=== PATIENT | male | born 1985 | race Two or more races ===

== ENCOUNTER 2020-08-18 10:29 | Emergency (ER) | payer BC ==
[~2020-08-18] VITALS: Ht 175.3 cm; Wt 161.0 kg
[2020-08-18 10:58] VITALS: BP 143/102
--- NOTE | 2020-08-18 12:20 | NUR ---
swab done and sent to lab
--- NOTE | 2020-08-18 12:20 | NUR ---
Patient discharged to home in stable condition. Written and verbal after care instructions given. Patient verbalizes understanding of instruction. Pt ambulatory with a steady gait
== END 2020-08-18 12:21 | disposition home or self-care (01) ==
LOC: ER 10:41
DX: U07.1 COVID-19 (principal); I10 Essential (primary) hypertension; E11.9 Type 2 diabetes mellitus without complications
CPT/HCPCS: 99283; C9803; U0003

== ENCOUNTER 2020-08-23 21:00 | Inpatient (IN) | payer BC, OTHER ==
[~2020-08-23] VITALS: Ht 177.8 cm; Wt 147.9 kg
--- NOTE | 2020-08-23 21:00 | NUR ---
TO ER BED 17 BIB EMS C/O SOB X3 DAYS. TESTED COVID (+) 08/18. O2 SAT 85% RA, 95% ON 3L/NC. PT ATTEMPTED PRONE POSITION AT HOME BUT INEFFECTIVE. PT AAOX4. PLACE PT ON CARDAIC MONITORING, CONTINUOUS POX. ER AAKASH FERRELL AT BEDSIDE TO EVAL PT WITH ORDERS RECEIVED. WILL CARRY OUT ORDERS.
--- NOTE | 2020-08-23 21:32 | NUR ---
RT AT [facility] FOR ABG.
[2020-08-23 21:43] LABS: ABG BASE EXCESS -0.6 mmol/L; ABG OXYGEN SATURATION 93.9 % (92.0-98.5); ABG PCO2 36.8 mmHg (35.0-45.0); ABG PH 7.421 (7.350-7.450); ABG PO2 68.3 mmHg (75.0-100.0); AaDO2 116.8 mmHg; COHb 0.4 % (0.5-1.5); MetHb 0.5 % (0.0-1.5); O2Hb 93.1 % (94.0-97.0); SITE, ABG Left Radial; VENT MODE, BG NC 3LPM
[2020-08-23 21:49] LABS: BASOPHILS # (AUTO) 0.1 /CMM (0.0-0.2); BASOPHILS % (AUTO) 0.9 % (0.0-2.0); EOSINOPHILS % (AUTO) 0.1 % (0.0-6.0); HEMATOCRIT 46 % (39-51); HEMOGLOBIN 15.1 g/dL (13.5-17.5); LYMPHOCYTES # (AUTO) 1.4 /CMM (0.8-4.8); LYMPHOCYTES % (AUTO) 16.3 % (20.0-44.0); MEAN CORPUSCULAR HGB CONC 33 g/dl (31.0-36.0); MEAN CORPUSCULAR VOLUME 86 fL (80-96); MONOCYTES # (AUTO) 0.4 /CMM (0.1-1.30); MONOCYTES % (AUTO) 5.3 % (2.0-12.0); NEUTROPHILS # (AUTO) 6.6 /CMM (1.8-8.9); NEUTROPHILS % (AUTO) 77.4 % (43.0-81.0); PLATELET COUNT (AUTO) 227 /CMM (150-450); RED BLOOD CELL COUNT(AUTO) 5.37 MIL/uL (4.5-6.0); WHITE BLOOD COUNT (AUTO) 8.5 K/uL (4.3-11.0)
[2020-08-23 22:14] LABS: ALANINE AMINOTRANSFERASE 89 U/L (12-78); ALBUMIN 3.2 g/dL (3.4-5.0); ALKALINE PHOSPHATASE 112 U/L (46-116); ASPARTATE AMINOTRANSFERASE 59 U/L (15-37); BILIRUBIN,DIRECT 0.3 mg/dL (0.0-0.2); BILIRUBIN,TOTAL 0.5 mg/dL (0.2-1.0); CALCIUM, SERUM 8.6 mg/dL (8.5-10.1); CARBON DIOXIDE 24 mmol/L (21-32); CHLORIDE 99 mmol/L (98-107); CREATININE 0.7 mg/dL (0.6-1.3); GLUCOSE 200 mg/dL (74-106); LIPASE 249 U/L (73-393); POTASSIUM 3.5 mmol/L (3.5-5.1); SODIUM SERUM 135 mmol/L (136-145); TOTAL PROTEIN, SERUM 7.8 g/dL (6.4-8.2); UREA NITROGEN, BLOOD 7 mg/dL (7-18)
[2020-08-23] MEDS ORDERED: IV NS 0.9% 250 ML IV ONE ×2 (22:29→23:03)
[2020-08-23] MEDS ORDERED: IOHEXOL-350 100 ML VIAL IV ONE ×2 (22:29→23:03)
[2020-08-23] MEDS ORDERED: CT SWABBABLE VALVE TRANS SET 1 EA INFUS.SET MC ONE ×2 (22:29→23:03)
[2020-08-23] MEDS ORDERED: IV NS 0.9% 500 ML BAG IV ONE (23:30)
[2020-08-23] MEDS ORDERED: DEXAMETHASONE SOD PHOSPHATE 10 MG/ML VIAL IV ONE (23:30)
[2020-08-23] MEDS ORDERED: CEFTRIAXONE 1GM BAG (ER ONLY) 1 GM/50 ML PIGGYBACK IV ONE (23:30)
[2020-08-23] MEDS ORDERED: AZITHROMYCIN 500 MG in IV D5W 250 ML IV ONE (23:30)
[2020-08-23] MEDS ORDERED: AZITHROMYCIN 500 MG VIAL ONE (23:35)
[2020-08-23] MEDS ORDERED: CEFTRIAXONE 1 G VIAL ONE (23:35)
[2020-08-24] MEDS ORDERED: LISI-607 PO (00:47)
[2020-08-24] MEDS ORDERED: SERT100T PO (00:47)
[2020-08-24] MEDS ORDERED: METF-442 PO (00:47)
--- NOTE | 2020-08-24 00:48 | NUR ---
PT RESTING COMFORTABLY. VSS.
--- NOTE | 2020-08-24 00:52 | NUR ---
ERIC ALONZO AT BEDSIDE
[2020-08-24] MEDS ORDERED: MAGNESIUM HYDROXIDE 30 ML UDC PO PRN (01:00)
[2020-08-24] MEDS ORDERED: ACETAMINOPHEN 325 MG TABLET PO PRN (01:00)
[2020-08-24] MEDS ORDERED: ZOLPIDEM TARTRATE 5 MG TABLET PO PRN (01:00)
[2020-08-24] MEDS ORDERED: ALBUTEROL SULFATE INH 18 GM HFA.AER.AD IH PRN (01:00)
[2020-08-24] MEDS ORDERED: ONDANSETRON HCL/PF 4 MG/2 ML VIAL IVP PRN (01:00)
[2020-08-24] MEDS ORDERED: HYDROCODONE/APAP 5/325MG TABLET PO PRN (01:00)
[2020-08-24] MEDS ORDERED: FUROSEMIDE 20 MG/2 ML VIAL IV SCH (01:00)
--- NOTE | 2020-08-24 01:19 | NUR ---
REPORT GIVEN TO FERNANDEZ AQUINO FOR ISREAL.
--- NOTE | 2020-08-24 01:20 | NUR ---
CALLED LAB REGARDING COVID PCR TEST.
--- NOTE | 2020-08-24 01:27 | NUR ---
PCR SENT TO LAB.
--- NOTE | 2020-08-24 01:28 | NUR ---
PT TRANSFERED PER [facility]S PROTOCOL
--- NOTE | 2020-08-24 01:35 | NUR ---
RN NOTE PT ARRIVED TO UNIT A/O X 4, ON 3 LITER NASAL CANNULA. DENIES ANY SOB AND PAIN AT THIS TIME.VS B/P 119/73 P 98, RR 18, TEMP 97.8, O2 SAT 95%. PT ON TELE MONITOR NSR. IV TO RT NAND AND RT AC PATENT, INTACT AND FLUSHING WELL. PT CLEANED MADE COMFORTABLE. BED LOCKED IN THE LOWEST POSITION, SIDE RAILS UP X 2, CALL LIGHT WITH IN REACH. WILL CONT. TO MONITOR PT.
[2020-08-24] MEDS: DEXAMETHASONE SOD PHOSPHATE 10 MG/ML VIAL IV SCH (02:00)
[2020-08-24] MEDS: AZITHROMYCIN 500 MG in IV D5W 250 ML IV SCH (02:00)
--- NOTE | 2020-08-24 02:00 | NUR ---
RN NOTE 2200 MEDICATIONS GIVEN IN ER SRAVANTHI ROA RN, PT ARRIVED TO [facility] AT 0135
[2020-08-24] MEDS: ENOXAPARIN SODIUM 40 MG/0.4 ML DISP.SYRIN SQ SCH ×2 (02:02→20:53)
[2020-08-24 04:00] VITALS: BP 119/73
--- NOTE | 2020-08-24 07:30 | NUR ---
RN OPENING NOTES PATIENT PRESENT IN BED, A/OX4, ON NC @ 3L, TOLERATING WE'LL, NO SOB REPORTED, NO DISTRESS, SPO2 IS 94%, DENIES PAIN OR DISCOMFORT, ABLE TO AMBULATED, PROVIDED WITH EXTRA LONG NC, SKIN IS INTACT, IV LINE PRESENT ON R HAND AND E AC, INTACT AND PATENT, URINAL AT ED SITE, SAFETY MEASURES IN PLACE, CALL LIGHT IN REACH, BED IS LOCKED IN LOWEST POSITION, WILL CONT TO MONITOR
[2020-08-24 08:00] VITALS: BP 110/65
[2020-08-24 12:00] VITALS: BP 120/78
--- NOTE | 2020-08-24 15:20 | NUR ---
Patient complains on SOB, SPO2 is 87%, increased O2 flow to 4L on NC, SPO2 is 92%
[2020-08-24 16:00] VITALS: BP 122/68
[2020-08-24] MEDS ORDERED: MENTHOL/CETYLPYRD (CEPACOL) 1 LOZ LOZENGE PO PRN (19:30)
[2020-08-24 20:00] VITALS: BP 133/80
--- NOTE | 2020-08-24 20:06 | NUR ---
RN NOTES PATIENT IS ALERT AND RESPONSIVE. NO SOB OR ANY RESPIRATORY DISTRESS. ON 4L OXYGEN VIA NASAL CANNULA, O2 SAT 92%. WITH IV #20 RIGHT HAND AND RIGHT AC INTACT AND PATENT. CALL LIGHT WITHIN REACH. WILL CONTINUE TO MONITOR.
[2020-08-25] VITALS: BP 120/76
--- NOTE | 2020-08-25 02:30 | NUR ---
LAB CALLED AT THIS TIME, REPORTED PATIENT IS COVID POSITIVE ON PCR TEST. AWARE. ISOLATION PRECAUTIONS OBSERVED.
[2020-08-25 04:00] VITALS: BP 118/86
--- NOTE | 2020-08-25 06:48 | NUR ---
RN NOTES PATIENT IS ALERT AND RESPONSIVE. NO SOB OR ANY RESPIRATORY DISTRESS. ON 4L OXYGEN VIA NASAL CANNULA, O2 SAT 96%. WITH IV #20 RIGHT HAND AND RIGHT AC INTACT AND PATENT. DENIES ANY PAIN OR DISCOMFORT. SIDE RAILS UP X2. SAFETY MEASURES IMPLEMENTED. CALL LIGHT WITHIN REACH. WILL ENDORSE TO ONCOMING SHIFT.
--- NOTE | 2020-08-25 07:25 | NUR ---
BIG DATA HADOOP DEVELOPER OPENING NOTES PATIENT IS IN BED RESTING, AWAKE AND VERBALLY RESPONSIVE. ALERT AND ORIENTED X4, ABLE TO MAKE NEEDS KNOWN. BREATHING EVEN AND UNLABORED, ON 5L OXYGEN VIA NASAL CANNULA, NO RESPIRATORY DISTRESS NOTED. ON TELE MONITORING, READING OF SR, HR IN THE 70'S-80'S, NO CARDIAC DISTRESS NOTED. IV LINE ON RIGHT HAND #20 AND RAC #20 INTACT AND PATENT. SAFETY MEASURES IN PLACE: BED ON LOWEST POSITION, SIDE RAILS UP X2. CALL LIGHT WITHIN REACH. WILL CONTINUE TO MONITOR.
[2020-08-25 07:34] LABS: BASOPHILS % (AUTO) 0.3 % (0.0-2.0); EOSINOPHILS % (AUTO) 0.2 % (0.0-6.0); HEMATOCRIT 43 % (39-51); HEMOGLOBIN 14.4 g/dL (13.5-17.5); LYMPHOCYTES # (AUTO) 1.8 /CMM (0.8-4.8); LYMPHOCYTES % (AUTO) 32.1 % (20.0-44.0); MEAN CORPUSCULAR HGB CONC 33 g/dl (31.0-36.0); MEAN CORPUSCULAR VOLUME 86 fL (80-96); MONOCYTES # (AUTO) 0.6 /CMM (0.1-1.30); NEUTROPHILS # (AUTO) 3.1 /CMM (1.8-8.9); NEUTROPHILS % (AUTO) 56.4 % (43.0-81.0); PLATELET COUNT (AUTO) 273 /CMM (150-450); RED BLOOD CELL COUNT(AUTO) 5.03 MIL/uL (4.5-6.0); WHITE BLOOD COUNT (AUTO) 5.5 K/uL (4.3-11.0)
[2020-08-25 08:00] VITALS: BP 114/66
[2020-08-25 08:06] LABS: CALCIUM, SERUM 8.4 mg/dL (8.5-10.1); CREATININE 0.6 mg/dL (0.6-1.3); MAGNESIUM 2.3 mg/dL (1.8-2.4); PHOSPHORUS 3.4 mg/dL (2.5-4.9); POTASSIUM 3.6 mmol/L (3.5-5.1)
[2020-08-25] MEDS: DEXAMETHASONE SOD PHOSPHATE 10 MG/ML VIAL IV SCH (08:28)
[2020-08-25] MEDS ORDERED: DEXTROSE 50%-WATER 50 ML DISP.SYRIN IV PRN (09:00)
--- NOTE | 2020-08-25 09:42 | NUR ---
RN NOTES MILES MOORE, CALLED AND INFORMED THAT DR. ALCAZAR W/ ORDERS FOR PATIENT, NOTED AND CARRIED OUT BY TERESA.
[2020-08-25] MEDS: INSULIN GLARGINE, 100 UNIT/ML CARTRIDGE SQ SCH ×2 (10:30→22:02)
[2020-08-25 10:38] LABS: BILIRUBIN,DIRECT 0.3 mg/dL (0.0-0.2); BILIRUBIN,TOTAL 0.5 mg/dL (0.2-1.0); TOTAL PROTEIN, SERUM 7.3 g/dL (6.4-8.2)
[2020-08-25] MEDS: BLOOD SUGAR DIAGNOSTIC 1 EACH STRIP VI SCH ×3 (11:53→21:59)
[2020-08-25] MEDS: INSULIN REGULAR, HUMAN 100 UNIT/ML 3 ML VIAL SQ PRN ×2 (11:55→17:32)
[2020-08-25 12:00] VITALS: BP 128/79
[2020-08-25] MEDS ORDERED: REMDESIVIR (CHARGED) 200 MG, *LOADING DOSE 1 EA in IV NS 0.9% 210 ML IV ONE (12:00)
--- NOTE | 2020-08-25 12:02 | NUR ---
RN NOTES PATIENT MADE AWARE OF NEW ORDER FROM DR. ALCAZAR OF REMDESIVIR IV. PATIENT VERBALLY AGREED TO RECEIVE MEDICATION.
--- NOTE | 2020-08-25 12:29 | NUR ---
RN NOTES STARTED INITIAL DOSE OF REMDESIVIR IV.
[2020-08-25 16:00] VITALS: BP 123/81
--- NOTE | 2020-08-25 19:01 | NUR ---
CARPENTRY PROFESSIONAL CLOSING NOTES PATIENT IS IN BED, AWAKE AND VERBALLY RESPONSIVE. ALERT AND ORIENTED X4, ABLE TO MAKE NEEDS KNOWN. BREATHING EVEN AND UNLABORED, ON 5L OXYGEN VIA NASAL CANNULA, NO SOB NOR RESPIRATORY DISTRESS. ON TELE MONITORING, READING OF SR, HR IN THE -80'S. IV LINE ON RIGHT HAND #20 AND RAC #20 INTACT AND PATENT. INITIAL DOSE OF REMDESIVIR GIVEN TODAY. ACCUCHECKS TAKEN AND RECORDED. DUE MEDS GIVEN. SAFETY MEASURES MAINTAINED: BED ON LOWEST POSITION, SIDE RAILS UP X2. CALL LIGHT WITHIN REACH. WILL ENDORSE TO TOP AND SEAT COVER FITTER RN FOR ISREAL.
--- NOTE | 2020-08-25 19:30 | NUR ---
cup machine operator opening notes Received Pt from morning nurse. Pt is sitting in bed comfortably watching TV. Pt is alert and orientedX4. Respiration on 5 L NC. No SOB. No S/S of distress notes. Tele monitor showed sinus rhytm HR at 107 bpm. IV sites at RAc# 20 is clean, intact and flushes well. IV site at R hand# 20 is clean, intact and SL. Safety precautions is maintained. Bed at low position, Hob elevated, brakes locked, side rails X2 and call light is within reach. Will continue to monitor.
[2020-08-25 20:00] VITALS: BP 120/78
[2020-08-25] MEDS: AZITHROMYCIN 500 MG in IV D5W 250 ML IV SCH (21:40)
[2020-08-25] MEDS: ENOXAPARIN SODIUM 40 MG/0.4 ML DISP.SYRIN SQ SCH (21:40)
[2020-08-25] MEDS: *INSULIN REGULAR(HUMULIN R)HUM 100 UNIT/ML VIAL SQ PRN (22:04)
[2020-08-26] VITALS: BP 126/83
--- NOTE | 2020-08-26 00:57 | NUR ---
cost accounting clerk notes Pt accidentally removed IV site on R hand. Pt still has IV site on RAC# 20 is clean, intact and flushes well.
[2020-08-26 04:00] VITALS: BP 118/83
--- NOTE | 2020-08-26 06:52 | NUR ---
elastic attacher coverstitch closing notes Pt is resting in bed comfortably. Pt is alert and orientedX4. Respiration on 5 L NC. No SOB. No S/S of distress notes. Tele monitor showed sinus rhytm HR at 70 bpm. IV sites at RAc# 20 is clean, intact and flushes well and SL. Kept Pt clean, dry and comfortable. All needs met and attended. Safety precautions is maintained. Bed at low position, Hob elevated, brakes locked, side rails X2 and call light is within reach. Will endorse to morning nurse for ISREAL.
[2020-08-26 07:10] LABS: BASOPHILS % (AUTO) 0.2 % (0.0-2.0); EOSINOPHILS % (AUTO) 0.2 % (0.0-6.0); HEMATOCRIT 44 % (39-51); HEMOGLOBIN 14.3 g/dL (13.5-17.5); LYMPHOCYTES # (AUTO) 2.5 /CMM (0.8-4.8); LYMPHOCYTES % (AUTO) 31.4 % (20.0-44.0); MEAN CORPUSCULAR HGB CONC 33 g/dl (31.0-36.0); MEAN CORPUSCULAR VOLUME 86 fL (80-96); MONOCYTES # (AUTO) 0.7 /CMM (0.1-1.30); MONOCYTES % (AUTO) 9.1 % (2.0-12.0); NEUTROPHILS # (AUTO) 4.6 /CMM (1.8-8.9); NEUTROPHILS % (AUTO) 59.1 % (43.0-81.0); PLATELET COUNT (AUTO) 338 /CMM (150-450); RED BLOOD CELL COUNT(AUTO) 5.06 MIL/uL (4.5-6.0); WHITE BLOOD COUNT (AUTO) 7.8 K/uL (4.3-11.0)
[2020-08-26 07:17] LABS: ALBUMIN 2.9 g/dL (3.4-5.0); BILIRUBIN,DIRECT 0.3 mg/dL (0.0-0.2); BILIRUBIN,TOTAL 0.4 mg/dL (0.2-1.0); CALCIUM, SERUM 8.3 mg/dL (8.5-10.1); CREATININE 0.7 mg/dL (0.6-1.3); POTASSIUM 3.6 mmol/L (3.5-5.1); TOTAL PROTEIN, SERUM 7.1 g/dL (6.4-8.2)
--- NOTE | 2020-08-26 07:59 | NUR ---
GREASE MAKER OPEN NOTES PATIENT IS A/O X 4 WITH NO SIGNS OF DISTRESS ON 5L OF NASAL CANNULA. R AC #20G SL. NO COMPLAIN OF PAIN AT THIS TIME. TELE MONITOR SR 70'S. SAFETY MEASURES ARE APPLIED, BED IS IN LOW POSITION SIDE RAILS UP X 2. CALL LIGHT WITHIN REACH. WILL CONTINUE TO MONITOR.
[2020-08-26 08:00] VITALS: BP 116/74
[2020-08-26] MEDS: BLOOD SUGAR DIAGNOSTIC 1 EACH STRIP VI SCH ×4 (10:18→21:13)
[2020-08-26] MEDS: INSULIN REGULAR, HUMAN 100 UNIT/ML 3 ML VIAL SQ PRN ×3 (10:21→18:13)
[2020-08-26] MEDS: DEXAMETHASONE SOD PHOSPHATE 10 MG/ML VIAL IV SCH (10:22)
[2020-08-26] MEDS: INSULIN GLARGINE, 100 UNIT/ML CARTRIDGE SQ SCH ×2 (11:26→21:50)
[2020-08-26 12:00] VITALS: BP 111/79
[2020-08-26] MEDS: REMDESIVIR (CHARGED) 100 MG in IV NS 0.9% 230 ML IV SCH (12:47)
[2020-08-26 16:00] VITALS: BP 143/82
--- NOTE | 2020-08-26 19:30 | NUR ---
RN OPENING NOTES RECEIVED PT IN BED. A/O X4, PT CALM AND COOPERATIVE. PT IS ON 2L O2 VIA NASAL CANNULA TOLERATING WELL NO S/S OF RESP DISTRESS OR SOB. BREATHING IS EVEN AND UNLABORED. PT ON WELFARE ANALYST DISPLAYS, NSR WITH HEART RATE OF 70 AT THIS TIME. PT IS AMBULATORY. IV SITE, RIGHT AC PATENT FLUSHED ASEPTICALLY. PT DENIES PAIN AT THIS TIME. SAFETY MEASURES IN PLACE. HOB ELEVATED. SIDE RAILS UP X2 BED LOCKED IN LOWEST POSITION CALL LIGHT WITHIN REACH. WILL CONTINUE TO MONITOR.
--- NOTE | 2020-08-26 19:43 | NUR ---
CHANGE CONTROL ANALYST CLOSE NOTES PATIENT IS A/O X 4 WITH NO SIGNS OF DISTRESS ON 2L OF NASAL CANNULA SPO2 90-92%. R AC #20G SL. NO COMPLAIN OF PAIN AT THIS TIME. TELE MONITOR SR. PATIENT KEPT CLEAN AND DRY. ALL NEEDS, CARE, TREATMENT, AND MEDICATIONS WERE ADMINISTERED ANTICIPATED PER ORDER. SAFETY MEASURES ARE APPLIED, BED IS IN LOW POSITION SIDE RAILS UP X 2. CALL LIGHT WITHIN REACH WILL ENDORSE TO THE AIR CREW SUPERVISOR NURSE.
[2020-08-26 20:00] VITALS: BP_SYST 100; BP_SYST 139; BP_SYST 148; BP_DIAS 48; BP_DIAS 68; BP_DIAS 88
[2020-08-26] MEDS: ENOXAPARIN SODIUM 40 MG/0.4 ML DISP.SYRIN SQ SCH (21:12)
[2020-08-26] MEDS: *INSULIN REGULAR(HUMULIN R)HUM 100 UNIT/ML VIAL SQ PRN (21:50)
--- NOTE | 2020-08-26 23:12 | NUR ---
PT HAS VERBALIZED NO DESIRE FOR BED BATH, PT INDEPENDENT TO SELF CARE. HYGIENE PRODUCTS PROVIDED.
[2020-08-27] VITALS: BP 145/90
--- NOTE | 2020-08-27 03:31 | NUR ---
PT RESTING WELL UPON ROUNDS, DENIES PAIN AT THIS TIME. WISHES TO RETURN BACK TO SLEEP. WILL CONT TO MONITOR.
[2020-08-27 04:00] VITALS: BP 110/83
--- NOTE | 2020-08-27 06:51 | NUR ---
RN CLOSING NOTES NO SIGNIFICANT CHANGES, PT RESTED WELL THROUGHOUT THE NIGHT. PT IS STILL ON 2L O2 VIA NASAL CANNULA TOLERATING WELL NO S/S OF RESP DISTRESS OR SOB. BREATHING IS EVEN AND UNLABORED. O2 SAT IS 96%. PT ON COMPENSATION SUPERVISOR DISPLAYS, NSR WITH HEART RATE OF 73 AT THIS TIME. PT DENIES PAIN AT THIS TIME. AFEBRILE. NEEDS ATTENDED. SAFETY MEASURES IN PLACE. HOB ELEVATED. SIDE RAILS UP X2 BED LOCKED IN LOWEST POSITION CALL LIGHT WITHIN REACH. WILL ENDORSE TO AM NURSE FOR CONTINUATION OF CARE.
[2020-08-27] MEDS: BLOOD SUGAR DIAGNOSTIC 1 EACH STRIP VI SCH ×4 (08:02→21:15)
[2020-08-27] MEDS: INSULIN REGULAR, HUMAN 100 UNIT/ML 3 ML VIAL SQ PRN ×3 (08:07→17:32)
[2020-08-27] MEDS: DEXAMETHASONE SOD PHOSPHATE 10 MG/ML VIAL IV SCH (08:13)
[2020-08-27] MEDS: INSULIN GLARGINE, 100 UNIT/ML CARTRIDGE SQ SCH ×2 (08:16→21:15)
[2020-08-27 08:22] VITALS: BP 133/84
[2020-08-27] MEDS: REMDESIVIR (CHARGED) 100 MG in IV NS 0.9% 230 ML IV SCH (11:03)
[2020-08-27 12:00] VITALS: BP 129/76
[2020-08-27 16:00] VITALS: BP 120/81
[2020-08-27 16:53] LABS: ALBUMIN 2.9 g/dL (3.4-5.0); BILIRUBIN,DIRECT 0.2 mg/dL (0.0-0.2); BILIRUBIN,TOTAL 0.4 mg/dL (0.2-1.0); TOTAL PROTEIN, SERUM 6.8 g/dL (6.4-8.2)
--- NOTE | 2020-08-27 19:05 | NUR ---
ASSOCIATE DOCTOR OPENING NOTES RECEIVED PATIENT IN BED AWAKE ALERT AND ORIENTED X4 RESPIRATIONS EVEN AND UNLABORED WITH EQUAL RISE AND FALL OF CHEST, ON 2 L VIA NC TOLERATING WELL, IV SITE TO RIGHT AC #20 G INTACT AND PATENT, NO REDNESS, NO INFILTRATION PRESENT, ORIENTED TO STAFF AND CALL LIGHT AND KEPT WITHIN REACH, SAFETY PRECAUTIONS MAINTAINED LOW BED AND LOCKED WILL CONTINUE TO MONITOR.
[2020-08-27 20:00] VITALS: BP 128/83
[2020-08-27] MEDS: ENOXAPARIN SODIUM 40 MG/0.4 ML DISP.SYRIN SQ SCH (21:09)
[2020-08-27] MEDS: *INSULIN REGULAR(HUMULIN R)HUM 100 UNIT/ML VIAL SQ PRN (21:18)
[2020-08-28] VITALS: BP 114/79
[2020-08-28 04:24] VITALS: BP 115/80
--- NOTE | 2020-08-28 06:16 | NUR ---
BUSINESS SALES CONSULTANT CLOSING NOTES PATIENT IN BED AWAKE ALERT AND ORIENTED X4 RESPIRATIONS EVEN AND UNLABORED WITH EQUAL RISE AND FALL OF CHEST, ON 2 L VIA NC TOLERATING WELL, IV SITE TO RIGHT AC #20 G INTACT AND PATENT, NO REDNESS, NO INFILTRATION PRESENT, CALL LIGHT KEPT WITHIN REACH, SAFETY PRECAUTIONS MAINTAINED LOW BED AND LOCKED, ALL NEEDS WERE ATTENDED WILL CONTINUE TO MONITOR AND ENDORSE TO NEXT SHIFT, NO CHANGES NOTED THROUGHOUT SHIFT.
--- NOTE | 2020-08-28 06:23 | NUR ---
ON [employer] OFFICER SR 73
[2020-08-28 06:59] LABS: BASOPHILS % (AUTO) 0.2 % (0.0-2.0); EOSINOPHILS % (AUTO) 0.4 % (0.0-6.0); HEMATOCRIT 46 % (39-51); HEMOGLOBIN 15.4 g/dL (13.5-17.5); LYMPHOCYTES # (AUTO) 3.5 /CMM (0.8-4.8); LYMPHOCYTES % (AUTO) 31.2 % (20.0-44.0); MEAN CORPUSCULAR HGB CONC 33 g/dl (31.0-36.0); MEAN CORPUSCULAR VOLUME 85 fL (80-96); MONOCYTES # (AUTO) 0.9 /CMM (0.1-1.30); MONOCYTES % (AUTO) 8.2 % (2.0-12.0); NEUTROPHILS # (AUTO) 6.8 /CMM (1.8-8.9); PLATELET COUNT (AUTO) 413 /CMM (150-450); RED BLOOD CELL COUNT(AUTO) 5.39 MIL/uL (4.5-6.0); WHITE BLOOD COUNT (AUTO) 11.3 K/uL (4.3-11.0)
[2020-08-28 07:24] LABS: BILIRUBIN,TOTAL 0.5 mg/dL (0.2-1.0); CALCIUM, SERUM 8.5 mg/dL (8.5-10.1); CREATININE 0.6 mg/dL (0.6-1.3); POTASSIUM 3.7 mmol/L (3.5-5.1); TOTAL PROTEIN, SERUM 7.1 g/dL (6.4-8.2)
[2020-08-28 07:27] LABS: BILIRUBIN,DIRECT 0.2 mg/dL (0.0-0.2); BILIRUBIN,TOTAL 0.4 mg/dL (0.2-1.0); CALCIUM, SERUM 8.4 mg/dL (8.5-10.1); CREATININE 0.6 mg/dL (0.6-1.3); POTASSIUM 3.7 mmol/L (3.5-5.1)
--- NOTE | 2020-08-28 07:30 | NUR ---
RN OPENING NOTE PT RESTING IN BED COMFORTABLY, NO SIGNS OF RESP DISTRESS OR SOB, ON NC 2LPM. PT DENIES PAIN. RT AC INTACT, FLUSHED AND PATENT, NO SIGN OF INFECTION OR INFILTRATION. ALL SAFETY PRECAUTIONS IN PLACE. WILL CONTINUE TO MONITOR
[2020-08-28 08:00] VITALS: BP 125/82
[2020-08-28] MEDS: BLOOD SUGAR DIAGNOSTIC 1 EACH STRIP VI SCH ×4 (08:07→22:08)
[2020-08-28 08:23] LABS: C-REACTIVE PROTEIN 0.6 mg/dL (0.0-0.9)
[2020-08-28] MEDS: DEXAMETHASONE SOD PHOSPHATE 10 MG/ML VIAL IV SCH (08:55)
[2020-08-28] MEDS: INSULIN REGULAR, HUMAN 100 UNIT/ML 3 ML VIAL SQ PRN ×3 (08:56→22:09)
[2020-08-28] MEDS: REMDESIVIR (CHARGED) 100 MG in IV NS 0.9% 230 ML IV SCH (11:48)
[2020-08-28 12:00] VITALS: BP 109/72
[2020-08-28] MEDS: INSULIN GLARGINE, 100 UNIT/ML CARTRIDGE SQ SCH ×2 (12:46→22:08)
[2020-08-28] MEDS: *INSULIN REGULAR(HUMULIN R)HUM 100 UNIT/ML VIAL SQ PRN (12:47)
[2020-08-28 16:00] VITALS: BP 131/80
--- NOTE | 2020-08-28 19:00 | NUR ---
RN CLOSING NOTE PT STABLE. NO CHANGES TO PT STATUS. WILL ENDORSE ISREAL TO ONCOMING NURSE
--- NOTE | 2020-08-28 19:30 | NUR ---
RN NOTES RECEIVED PT IN BED ALERT AND ORIENTED X 4. ON O2 VIA NC AT 2 LPM. DENIES ANY SOB. NOT IN ANY ACUTE DISTRESS. TELE MONITOR SHOWS IN SR. DENIES PAIN. RAC SL #20 PATENT AND INTACT, FLUSHED. ALL SAFETY MEASURES IMPLEMENTED PER PROTOCOL. CALL LIGHT WITHIN REACH. BED LOCKED IN LOWEST POSITION. SIDE RAILS UP X 2.
[2020-08-28 20:00] VITALS: BP 124/85
[2020-08-28] MEDS: ENOXAPARIN SODIUM 40 MG/0.4 ML DISP.SYRIN SQ SCH (21:00)
[2020-08-29 01:11] VITALS: BP 144/77
[2020-08-29 06:22] VITALS: BP 136/80
--- NOTE | 2020-08-29 07:35 | NUR ---
TELE/RN OPENING NOTE THE PATIENT IS RECEIVED SITTING IN BED. PATIENT IS ALERT AND ORIENTED X4. IN ROOM AIR AND DENIES SOB. RESPIRATION REGULAR AND UNLABORED. DENIES PAIN. TELE BOX READING IS SINUS RHYTHM. RAC G20 PATENT AND SALINE LOCKED. BED LOW AND LOCKED. SIDE RAILS UP X2. CALL LIGHT WITHIN REACH. WILL CONTINUE TO MONITOR.
--- NOTE | 2020-08-29 07:45 | NUR ---
RN NOTES PATIENT CONTINUE ON O2 VIA NC, TOLERATING WELL. NO DISTRESS NOTED, DENIES SOB DENIES PAIN. TELE MONITOR SHOW NSR HR 85. PT ABLE TO MAKE NEEDS KNOWN. ISOLATION PRECAUTION MAINTAINED. ATTENDED TO NEEDS. ALL SAFETY MEASURES IMPLEMENTED PER PROTOCOL. CALL LIGHT WITHIN REACH. BED LOCKED IN LOWEST POSITION. SIDE RAILS UP X 2. WILL ENDORSE TO NEXT SHIFT NURSE.
[2020-08-29 07:52] LABS: BASOPHILS # (AUTO) 0.1 /CMM (0.0-0.2); BASOPHILS % (AUTO) 0.6 % (0.0-2.0); EOSINOPHILS % (AUTO) 0.3 % (0.0-6.0); HEMATOCRIT 44 % (39-51); HEMOGLOBIN 14.5 g/dL (13.5-17.5); LYMPHOCYTES # (AUTO) 3.5 /CMM (0.8-4.8); MEAN CORPUSCULAR HGB CONC 33 g/dl (31.0-36.0); MEAN CORPUSCULAR VOLUME 86 fL (80-96); MONOCYTES # (AUTO) 1.2 /CMM (0.1-1.30); MONOCYTES % (AUTO) 8.9 % (2.0-12.0); NEUTROPHILS # (AUTO) 8.3 /CMM (1.8-8.9); NEUTROPHILS % (AUTO) 63.2 % (43.0-81.0); PLATELET COUNT (AUTO) 420 /CMM (150-450); RED BLOOD CELL COUNT(AUTO) 5.08 MIL/uL (4.5-6.0); WHITE BLOOD COUNT (AUTO) 13.1 K/uL (4.3-11.0)
[2020-08-29 08:00] VITALS: BP 173/60
[2020-08-29 08:11] LABS: ALBUMIN 2.7 g/dL (3.4-5.0); BILIRUBIN,DIRECT 0.2 mg/dL (0.0-0.2); BILIRUBIN,TOTAL 0.3 mg/dL (0.2-1.0); CREATININE 0.6 mg/dL (0.6-1.3); POTASSIUM 3.7 mmol/L (3.5-5.1); TOTAL PROTEIN, SERUM 6.5 g/dL (6.4-8.2)
[2020-08-29] MEDS: INSULIN GLARGINE, 100 UNIT/ML CARTRIDGE SQ SCH (08:35)
[2020-08-29] MEDS: INSULIN REGULAR, HUMAN 100 UNIT/ML 3 ML VIAL SQ PRN ×3 (08:35→17:33)
[2020-08-29] MEDS ORDERED: *INS REG SQ (08:54)
[2020-08-29] MEDS ORDERED: DEXA6TAB6 PO (08:54)
[2020-08-29] MEDS ORDERED: Insulin Glargine,Hum SQ (08:54)
[2020-08-29] MEDS: DEXAMETHASONE SOD PHOSPHATE 10 MG/ML VIAL IV SCH (09:00)
[2020-08-29] MEDS: BLOOD SUGAR DIAGNOSTIC 1 EACH STRIP VI SCH ×4 (09:22→21:07)
[2020-08-29] MEDS: METFORMIN 500 MG TABLET PO SCH ×2 (10:07→17:30)
[2020-08-29 12:00] VITALS: BP 136/87
--- NOTE | 2020-08-29 12:20 | NUR ---
TELE/RN NOTE PATIENT COMPLAINS OF HEARTBURN. DR ALCAZAR IS MADE AWARE AND RECEIVED AN ORDER OF [place] PO BID PRN. THE ORDER IS READ BACK, VERIFIED. NOTED AND CARRIED OUT.
[2020-08-29] MEDS ORDERED: ALUMINUM HYDROXIDE 1,920 MG/30 ML UDC PO PRN ×2 (12:30→13:00)
[2020-08-29] MEDS: REMDESIVIR (CHARGED) 100 MG in IV NS 0.9% 230 ML IV SCH (12:45)
[2020-08-29] MEDS ORDERED: MAG HYDROX/AL HYDROX/SIMETH 30 ML UDC PO PRN (13:00)
[2020-08-29 16:00] VITALS: BP 109/78
--- NOTE | 2020-08-29 18:33 | NUR ---
RN CLOSING NOTE PATIENT IN BED CURRENTLY RESTING IN SEMI-FOWLERS POSITION, A&OX4, ABLE TO MAKE NEEDS KNOWN, BREATHING EVENLY AND UNLABORED. NO SOB NOTED, DENIES PAIN. ISOLATION PRECAUTIONS MAINTAINED. PERIPHERAL IV LINE RIGHT HAND INTACT AND PATENT #22 IRAM. DRESSING CLEAN AND DRY. SAFETY PRECAUTIONS IMPLEMENTED, BED LOCKED IN LOWEST POSITION, SIDE RAILS UPX2, CALL LIGHT WITHIN REACH. CONTINUATION OF CARE WILL BE ENDORSED TO UPCOMING SHIFT. CURRENTLY AWAITING TRANSPORTATION TO BE DISCHARGED HOME.
--- NOTE | 2020-08-29 18:52 | NUR ---
RN NOTE DISCHARGE EDUCATION/INSTRUCTION PROVIDED AND HE VERBALIZED UNDERSTANDING. PRESCRIPTION HANDED TO THE PATIENT AND THE COPY IS SAVED IN THE CHART. WAITING FOR MATERIAL HANDLING CREW SUPERVISOR VIA AMBULANCE. WILL ENDORSE TO VIDEO ARCADE MANAGER.
[2020-08-29 20:00] VITALS: BP 129/90
[2020-08-29] MEDS: ENOXAPARIN SODIUM 40 MG/0.4 ML DISP.SYRIN SQ SCH (21:00)
--- NOTE | 2020-08-29 21:00 | NUR ---
LPN RN HOSPICE NOTE: PATIENT DISCHARGE TO HOME, EMT AT BEDSIDE. REPORT GIVEN TO EMT, DISCHARGE PAPERWORK WITH PATIENT. IV REMOVED, COVERED WITH GAUZE, PRESSURE APPLIED, AND SECURED WITH TAPE. PATIENT WILL ALL BELONGINGS. OXYGEN ALREADY DELIVERED TO HOME. PATIENT OFF FLOOR IN STABLE CONDITION.
== END 2020-08-29 21:01 | disposition home or self-care (01) | DRG 177 ==
LOC: ER 21:02 → TELE1 08-24 00:48
PROVIDERS: ADMIT Family Medicine; ATTEND Internal Medicine
PROC: XW033E5 Introduction of Remdesivir Anti-infective into Peripheral Vein, Percutaneous Approach, New Technology Group 5 (ICD-10-PCS; principal; 2020-08-25)
DX: U07.1 COVID-19 (principal); J96.01 Acute respiratory failure with hypoxia; J12.89 Other viral pneumonia; E87.1 Hypo-osmolality and hyponatremia; E44.1 Mild protein-calorie malnutrition; Z68.42 Body mass index [BMI] 45.0-49.9, adult; E11.65 Type 2 diabetes mellitus with hyperglycemia; I10 Essential (primary) hypertension; Z79.84 Long term (current) use of oral hypoglycemic drugs; R74.01 Elevation of levels of liver transaminase levels; E88.09 Other disorders of plasma-protein metabolism, not elsewhere classified; E86.1 Hypovolemia; E66.9 Obesity, unspecified; Z83.3 Family history of diabetes mellitus
CPT/HCPCS: 36415; 36600; 71045-TC; 80048-TC; 80053-TC; 80061-TC; 80076-TC; 82728-TC; 82803-TC; 82962-TC; 83605-TC; 83690-TC; 83735-TC; 83880; 84100-TC; 84484-TC; 85025-TC; 85378-TC; 85610-TC; 85730-TC; 86140-TC; 87081-TC; A4216; G0378; J0456; J0696; J1100; J1650; J1815; J1940; J7040; J7050; J7060; Q9967; U0003

== ENCOUNTER 2022-11-06 17:46 | Emergency (ER) | payer BC, OTHER ==
[~2022-11-06] VITALS: Ht 175.3 cm; Wt 152.0 kg
[~2022-11-06 17:46] MED LIST: *INS REG SQ; DEXA6TAB6 PO; Insulin Glargine,Hum SQ; LISI-768 PO; METF-442 PO; SERT100T PO
--- NOTE | 2022-11-06 18:01 | NUR ---
BIB MOTHER C/O ASCENDING SENSORY LOSS FROM BOTH LEGS TO HIS LOWER ABDOMEN THAT STARTED A MONTH AGO. PT STATED IT INITIALLY STARTED ON HIS LEFT LEFT, THEN HIS RIGHT LEG, AND NOW LOST SENSATION IN HIS LOWER ADBOMEN. PT UNABLE TO AMBULATE WIHTOUT ASSISTANCE AND HAS BEEN HAVING REOCCURING FALLS, DENIES TRAUMA. STATED PRIOR HE WAS ABLE TO AMBULATE ON HIS OWN. AWAITING MD RICO.
[2022-11-06 18:29] LABS: BASOPHILS # (AUTO) 0.1 K/uL (0.0-0.2); BASOPHILS % (AUTO) 0.5 % (0.0-2.0); EOSINOPHILS % (AUTO) 0.9 % (0.0-6.0); HEMATOCRIT 48 % (39-51); HEMOGLOBIN 15.2 g/dL (13.5-17.5); LYMPHOCYTES # (AUTO) 2.8 K/uL (0.8-4.8); LYMPHOCYTES % (AUTO) 18.9 % (20.0-44.0); MEAN CORPUSCULAR HGB CONC 32 g/dl (31.0-36.0); MEAN CORPUSCULAR VOLUME 85 fL (80-96); MONOCYTES # (AUTO) 0.9 K/uL (0.1-1.30); NEUTROPHILS # (AUTO) 10.9 K/uL (1.8-8.9); NEUTROPHILS % (AUTO) 73.7 % (43.0-81.0); PLATELET COUNT (AUTO) 284 K/uL (150-450); RED BLOOD CELL COUNT(AUTO) 5.64 MIL/uL (4.5-6.0); WHITE BLOOD COUNT (AUTO) 14.8 K/uL (4.3-11.0)
--- NOTE | 2022-11-06 18:31 | NUR ---
MARITZA ESTABLISHED R DUNCAN 20G.
[2022-11-06 18:49] LABS: ALBUMIN 4.1 g/dL (3.4-5.0); BILIRUBIN,DIRECT 0.1 mg/dL (0.0-0.2); BILIRUBIN,TOTAL 0.4 mg/dL (0.2-1.0); CREATININE 0.7 mg/dL (0.6-1.3); POTASSIUM 4.1 mmol/L (3.5-5.1); TOTAL PROTEIN, SERUM 7.9 g/dL (6.4-8.2)
--- NOTE | 2022-11-06 19:59 | NUR ---
COVID SWAB DONE AND SENT TO LAB
--- NOTE | 2022-11-06 20:48 | NUR ---
CLINICAL REPORT GIVEN TO BOYD PHOTOFLASH POWDER MIXER
--- NOTE | 2022-11-06 22:25 | NUR ---
DR PEREZ ON THE PHONE WITH JOSE SNELL
--- NOTE | 2022-11-07 00:59 | NUR ---
COVID RESULT WERE FAXED TO [facility] AT [phone] AND [facility] AT [phone]
--- NOTE | 2022-11-07 03:07 | NUR ---
EDU DANIELLE AT [facility] ; PT GOT ACCPETED AT [facility] UNDER CARE OF DR SKY. # FOR REPORT: [phone] KEENAN ARRIOLAS ARRANGED FOR 75-90 MIN
--- NOTE | 2022-11-07 03:17 | NUR ---
AUTH NUMBER FOR TRANSPORTATION: [id number]
--- NOTE | 2022-11-07 03:27 | NUR ---
REPORT GIVEN TO ROBBIE AQUINO OF [facility]
--- NOTE | 2022-11-07 04:22 | NUR ---
SHASHI, CM: [phone]
--- NOTE | 2022-11-07 04:58 | NUR ---
PICKED UP BY [facility] UNIT[id number] IN STABLE CONDITION
--- NOTE | 2022-11-07 05:22 | NUR ---
CALLED [facility] FOR TRANSPORT, SHE WILL CALL [facility] TO ARRANGE BLS TRANSPORT. AWAITING CALLBACK FOR ETA. [facility] UNABLE TO TAKE PT DUE TO BERIATRIC.
--- NOTE | 2022-11-07 05:57 | NUR ---
[facility] SETUP TRANSPORT [facility]IA [facility] ETA 10:00
--- NOTE | 2022-11-07 08:47 | NUR ---
[facility] [phone]
--- NOTE | 2022-11-07 10:34 | NUR ---
PATIENT PICKEDUP BY TRANSPORT
[2022-11-07 10:35] VITALS: BP 125/64
== END 2022-11-07 10:35 | disposition short-term general hospital (02) ==
LOC: ER 17:48
DX: M48.04 Spinal stenosis, thoracic region (principal); R26.9 Unspecified abnormalities of gait and mobility; R90.89 Other abnormal findings on diagnostic imaging of central nervous system; I10 Essential (primary) hypertension; E11.9 Type 2 diabetes mellitus without complications; F32.A Depression, unspecified; Z79.82 Long term (current) use of aspirin; Z79.84 Long term (current) use of oral hypoglycemic drugs; Z20.822 Contact with and (suspected) exposure to COVID-19
CPT/HCPCS: 99285; 70450; 71045; 87426; 93005; 72131; 72128; 85025; 80048; 80076; 36415; 85730; 87081; 82962 ×2; C9803